=== PATIENT | male | born 1985 | race Caucasian/White ===

== ENCOUNTER 2017-09-05 21:59 | Emergency (ER) | payer SELFPAY ==
[~2017-09-05] VITALS: Ht 195.6 cm; Wt 77.1 kg
[2017-09-06 04:23] VITALS: BP 124/72
[2017-09-06] MEDS ORDERED: KETOROLAC TROMETH 60MG/2ML VIAL IM ONE (04:30)
[2017-09-06] MEDS ORDERED: HYDROcodone-ACET 7.5/325MG TAB PO ONE (04:30)
== END 2017-09-06 04:59 | disposition home or self-care (01) ==
LOC: ER 21:59
DX: S16.1XXA Strain of muscle, fascia and tendon at neck level, initial encounter (principal); S09.90XA Unspecified injury of head, initial encounter; F12.10 Cannabis abuse, uncomplicated; Z88.0 Allergy status to penicillin; V43.52XA Car driver injured in collision with other type car in traffic accident, initial encounter; Y93.89 Activity, other specified; Y99.8 Other external cause status; Y92.410 Unspecified street and highway as the place of occurrence of the external cause
CPT/HCPCS: 70450; 71045; 72125; 96372; 99284; J1885